=== PATIENT | female | born 2000 | race African-American/Black ===

== ENCOUNTER 2020-12-17 01:03 | Emergency (ER) | payer SELFPAY ==
[~2020-12-17] VITALS: Ht 154.9 cm; Wt 68.0 kg
[2020-12-17 01:05] VITALS: BP 128/78
--- NOTE | 2020-12-17 01:05 | NUR ---
TO BED AMBULATORY
--- NOTE | 2020-12-17 01:36 | NUR ---
PATIENT ASSESSMENT COMPLETED BY MATI, NO NURSING INTERVENTIONS REQUIRED AT THIS TIME.
--- NOTE | 2020-12-17 01:40 | NUR ---
PATIENT DENIES BEING BITTEN BY A CAT.
--- NOTE | 2020-12-17 01:46 | NUR ---
Patient discharged with v/s stable. Written and verbal after care instructions given and explained. Patient verbalized understanding. Ambulatory with steady gait. All questions addressed prior to discharge. Advised to follow up with PMD.
== END 2020-12-17 01:46 | disposition home or self-care (01) ==
LOC: MED 01:03
DX: S00.81XA Abrasion of other part of head, initial encounter (principal); W55.03XA Scratched by cat, initial encounter; Y93.89 Activity, other specified; Y92.89 Other specified places as the place of occurrence of the external cause; Y99.8 Other external cause status
CPT/HCPCS: 99281

== ENCOUNTER 2021-04-08 20:36 | Emergency (ER) | payer MEDICAID ==
[~2021-04-08] VITALS: Ht 154.9 cm; Wt 63.5 kg
[2021-04-08 21:02] VITALS: BP 141/97
--- NOTE | 2021-04-08 23:25 | NUR ---
WET MOUNT COLELCTED AND TAKEN TO LAB
[2021-04-09] MEDS ORDERED: METR-435 PO (00:11)
--- NOTE | 2021-04-09 00:28 | NUR ---
Patient discharged with v/s stable. Written and verbal after care instructions given and explained. Patient alert, oriented and verbalized understanding of instructions. Ambulatory with steady gait. All questions addressed prior to discharge. ID band removed. Patient advised to follow up with PMD. Rx of FLAGYL given. Patient educated on indication of medication including possible reaction and side effects. Opportunity to ask questions provided and answered.
== END 2021-04-09 00:28 | disposition home or self-care (01) ==
LOC: MED 20:36
DX: N76.0 Acute vaginitis (principal); B96.89 Other specified bacterial agents as the cause of diseases classified elsewhere; Z79.899 Other long term (current) drug therapy
CPT/HCPCS: 87210; 99283

== ENCOUNTER 2021-04-12 14:54 | Emergency (ER) | payer MEDICAID ==
[~2021-04-12] VITALS: Ht 154.9 cm; Wt 63.5 kg
[~2021-04-12 14:54] MED LIST: METR-435 PO
[2021-04-12 14:58] VITALS: BP 151/73
--- NOTE | 2021-04-12 15:13 | NUR ---
PT AMBULATED TO BED 12
--- NOTE | 2021-04-12 15:18 | NUR ---
PATIENT TAKEN TO XRAY VIA W/C
--- NOTE | 2021-04-12 15:30 | NUR ---
RADIOLOGY AT BEDSIDE
--- NOTE | 2021-04-12 15:40 | NUR ---
20 Y/O FEMALE BIB SELF. PATIENT PRESENTS TO ED WITH PAIN IN RIGHT SHOULDER AND PAIN IN LEFT ELBOW. PT STATES SHE SLIPPED IN THE SHOWER, GOT UP AND SLIPPED AGAIN. DENIES N/V/D; SKIN IS PINK/WARM/DRY; AAOX4 WITH EVEN AND STEADY GAIT; LUNGS CLEAR BL; HR EVEN AND REGULAR; PT DENIES ANY FEVER, CP, SOB, OR COUGH AT THIS TIME; DENIES NECK OR BACK PAIN AND REMEMBERS THE ENTIRE EVENT. PATIENT STATES PAIN OF 10/10 AT THIS TIME TO LEFT ELBOW; VSS; PATIENT POSITIONED FOR COMFORT; HOB ELEVATED; BEDRAILS UP X1; BED DOWN. ER MD MADE AWARE OF PT STATUS.PT HAS CALM DEMEANOR, UNLABORED BREATHING W/ EQUAL CHEST RISE/FALL, PT AMBULATES W/O ASSISTANCE.
--- NOTE | 2021-04-12 15:48 | NUR ---
ER AT BEDSIDE
[2021-04-12] MEDS ORDERED: ACET-8386 PO (16:04)
--- NOTE | 2021-04-12 16:17 | NUR ---
PT PLACED IN 4" ORTHO-GLASS LONG ARM POSTERIOR SPLINT AND WRAPPED WITH 3" CARMELA WRAPS X3. CMS WNL BEFORE AND AFTER. PT ALSO PLACED IN LEFT ARM SLING AND ERMD AND RN NOTIFIED.
[2021-04-12 16:22] VITALS: BP 151/73
--- NOTE | 2021-04-12 16:22 | NUR ---
Patient discharged with v/s stable. Written and verbal after care instructions given and explained. Patient alert, oriented and verbalized understanding of instructions. Ambulatory with steady gait. All questions addressed prior to discharge. ID band removed. Patient advised to follow up with PMD. Rx of HYDROCODONE/ACETAMINOPHEN given. Patient educated on indication of medication including possible reaction and side effects. Opportunity to ask questions provided and answered. PT HAS CALM DEMEANOR, UNLABORED BREATHING W/ EQUAL CHEST RISE/FALL, PT AMBULATES W/O ASSISTANCE.
== END 2021-04-12 16:22 | disposition home or self-care (01) ==
LOC: MED 14:54
DX: S42.412A Displaced simple supracondylar fracture without intercondylar fracture of left humerus, initial encounter for closed fracture (principal); Z79.899 Other long term (current) drug therapy; W18.2XXA Fall in (into) shower or empty bathtub, initial encounter; Y93.89 Activity, other specified; Y92.89 Other specified places as the place of occurrence of the external cause; Y99.8 Other external cause status
CPT/HCPCS: 29105; 73080; 99283

== ENCOUNTER 2021-04-16 10:54 | Emergency (ER) | payer MEDICAID ==
[~2021-04-16] VITALS: Ht 154.9 cm; Wt 63.5 kg
[~2021-04-16 10:54] MED LIST changes: +ACET-8386 PO
[2021-04-16 10:57] VITALS: BP 135/85
--- NOTE | 2021-04-16 10:57 | NUR ---
PT SENT TO LOBBY TO WAIT FOR AVAILABLE BED.
--- NOTE | 2021-04-16 11:29 | NUR ---
pt wheelchair assist to chb
[2021-04-16] MEDS ORDERED: ACET-8386 PO (11:53)
[2021-04-16] MEDS: KETOROLAC 30 MG/ML VIAL IM ONE (12:04)
--- NOTE | 2021-04-16 12:21 | NUR ---
Patient discharged with v/s stable. Written and verbal after care instructions given and explained. Patient alert, oriented and verbalized understanding of instructions. Ambulatory with steady gait. All questions addressed prior to discharge. ID band removed. Patient advised to follow up with PMD. Rx of HYDROCODONE/ACETAMINOPHEN given. Opportunity to ask questions provided and answered.
--- NOTE | 2021-04-16 12:25 | NUR ---
Chart checked and completed. The patient's care was reviewed and supervised by Татьяна Barbour RN.
== END 2021-04-16 12:20 | disposition home or self-care (01) ==
LOC: MED 10:54
DX: S42.412A Displaced simple supracondylar fracture without intercondylar fracture of left humerus, initial encounter for closed fracture (principal); Z79.899 Other long term (current) drug therapy; W01.0XXA Fall on same level from slipping, tripping and stumbling without subsequent striking against object, initial encounter; Y93.89 Activity, other specified; Y92.89 Other specified places as the place of occurrence of the external cause; Y99.8 Other external cause status
CPT/HCPCS: 29505; 96372; 99283; J1885

== ENCOUNTER 2021-04-22 13:49 | Emergency (ER) | payer MEDICAID ==
[~2021-04-22] VITALS: Ht 154.9 cm; Wt 72.6 kg
[2021-04-22 13:56] VITALS: BP 136/69
--- NOTE | 2021-04-22 13:59 | NUR ---
PATIENT SENT TO LOBBY
[2021-04-22] MEDS ORDERED: IBUP-2213 PO (14:45)
--- NOTE | 2021-04-22 15:50 | NUR ---
NO NURSING INTERVENTIONS PERFORMED
== END 2021-04-22 15:55 | disposition home or self-care (01) ==
LOC: MED 13:49
DX: M25.522 Pain in left elbow (principal); Z79.899 Other long term (current) drug therapy
CPT/HCPCS: 99282

== ENCOUNTER 2021-04-26 13:05 | Emergency (ER) | payer MEDICAID ==
[~2021-04-26] VITALS: Ht 154.9 cm; Wt 63.5 kg
[~2021-04-26 13:05] MED LIST changes: +IBUP-2213 PO
[2021-04-26 13:10] VITALS: BP 158/91
--- NOTE | 2021-04-26 13:14 | NUR ---
pt assessed by md in triage room at this time
--- NOTE | 2021-04-26 13:19 | NUR ---
pt ambulated to [facility] at this time Addendum: 04/26/21 at 1342 by [facility] pt ambulated to [facility]
--- NOTE | 2021-04-26 13:43 | NUR ---
pt left arm being reassessed by md lizama at this time
[2021-04-26] MEDS ORDERED: GABA300C PO (13:47)
--- NOTE | 2021-04-26 14:00 | NUR ---
NO NURSING INTERVENTIONS PERFORMED
--- NOTE | 2021-04-26 14:03 | NUR ---
Patient discharged with v/s stable. Written and verbal after care instructions given and explained. Patient alert, oriented and verbalized understanding of instructions. Ambulatory with steady gait. All questions addressed prior to discharge. ID band removed. Patient advised to follow up with PMD. Rx of Gabapentin given. Patient educated on indication of medication including possible reaction and side effects. Opportunity to ask questions provided and answered.
== END 2021-04-26 14:03 | disposition home or self-care (01) ==
LOC: MED 13:05
DX: S46.812A Strain of other muscles, fascia and tendons at shoulder and upper arm level, left arm, initial encounter (principal); M54.10 Radiculopathy, site unspecified; Z79.899 Other long term (current) drug therapy; W18.30XA Fall on same level, unspecified, initial encounter; Y93.89 Activity, other specified; Y92.89 Other specified places as the place of occurrence of the external cause; Y99.8 Other external cause status
CPT/HCPCS: 99283